=== PATIENT | female | born 1970 | race Caucasian/White ===

== ENCOUNTER → 2022-04-13 | Outpatient (CLI) | payer OTHER | LOC: COL.RAD 15:28 | DX: M79.601 Pain in right arm (principal) ==

== ENCOUNTER → 2022-04-13 | Outpatient (CLI) | payer OTHER | LOC: MHCPAIN 13:43 | DX: M50.30 Other cervical disc degeneration, unspecified cervical region (principal); M79.601 Pain in right arm | CPT/HCPCS: G0463 ==

== ENCOUNTER → 2022-05-10 | Outpatient (CLI) | payer OTHER | LOC: MHCPAIN 13:12 | DX: M79.601 Pain in right arm (principal); M54.2 Cervicalgia; M50.30 Other cervical disc degeneration, unspecified cervical region | CPT/HCPCS: G0463 ==

== ENCOUNTER → 2022-06-14 | Outpatient (CLI) | payer OTHER | LOC: MHCPAIN 13:14 | DX: M79.601 Pain in right arm (principal); G54.0 Brachial plexus disorders | CPT/HCPCS: G0463 ==

== ENCOUNTER 2022-08-26 15:25 | Outpatient (RCR) | payer SELFPAY | END 2022-09-20 | disposition home or self-care (01) | LOC: WSPT | DX: M79.601 Pain in right arm (principal) ==

== ENCOUNTER → 2023-05-03 | Outpatient (CLI) | payer OTHER | LOC: MHCPAIN 15:53 | DX: M79.601 Pain in right arm (principal); G54.0 Brachial plexus disorders | CPT/HCPCS: G0463 ==

== ENCOUNTER → 2023-12-12 | Outpatient (CLI) | payer OTHER | LOC: MHCPAIN 10:53 | DX: M25.511 Pain in right shoulder (principal); G54.0 Brachial plexus disorders | CPT/HCPCS: G0463 ==

== ENCOUNTER 2024-01-18 11:15 | Outpatient (RCR) | payer OTHER | END 2024-01-19 | LOC: WSPT | DX: G54.0 Brachial plexus disorders (principal) ==

== ENCOUNTER 2024-02-27 15:40 | Outpatient (RCR) | payer OTHER | END 2024-02-27 17:00 | disposition home or self-care (01) | LOC: WSPT 15:40 | DX: G54.0 Brachial plexus disorders (principal) ==